=== PATIENT | male | born 2000 | race Two or more races ===

== ENCOUNTER 2019-08-08 10:33 | Emergency (ER) | payer SELFPAY ==
[~2019-08-08] VITALS: Ht 165.1 cm; Wt 75.0 kg
[2019-08-08] MEDS ORDERED: IBUPROFEN 600MG TABLET PO ONE (11:45)
[2019-08-08 11:48] VITALS: BP 110/63
== END 2019-08-08 11:52 | disposition home or self-care (01) ==
LOC: ER 10:33
DX: H65.01 Acute serous otitis media, right ear (principal)
CPT/HCPCS: 99283